=== PATIENT | female | born 1995 | race American Indian/Alaskan Native ===

== ENCOUNTER 2019-01-17 17:48 | Emergency (ER) | payer OTHER ==
[2019-01-17 18:05] VITALS: BP 141/82
--- NOTE | 2019-01-17 18:08 | Emergency Department Report ---
Blank Doc - Documentation Documentation: 23 y o female presents with abd pain, mid non radiating withh diarrhea and con stipation was sent here by PCP to rule out appy due to elevateed wbc labs, IV fluids, CT abdomen ordered ACC eval
[2019-01-17 18:41] LABS: Basophils # (Auto) 0.1 K/mm3 (0.0-0.1); Basophils % (Auto) 0.5 % (0.0-1.8); Eosinophils # (Auto) 0.1 K/mm3 (0.0-0.4); Eosinophils % (Auto) 0.7 % (0.0-4.3); Hematocrit 39.5 % (30.3-42.9); Hemoglobin 13.2 gm/dl (10.1-14.3); Lymphocytes # (Auto) 2.5 K/mm3 (1.2-5.4); Lymphocytes % (Auto) 16.8 % (13.4-35.0); Mean Corpuscular HGB Conc 33 % (30-34); Mean Corpuscular Volume 89 fl (79-97); Monocytes # (Auto) 0.8 K/mm3 (0.0-0.8); Monocytes % (Auto) 5.2 % (0.0-7.3); Platelet Count 376 K/mm3 (140-440); Red Blood Count 4.45 M/mm3 (3.65-5.03); Red Cell Distribution Width 13.4 % (13.2-15.2)
[2019-01-17 19:02] LABS: BUN/Creatinine Ratio 20; Blood Urea Nitrogen 10 mg/dL (7-17); Calcium 9.5 mg/dL (8.4-10.2); Hemolysis Index 1
[2019-01-17] MEDS ORDERED: NACL 0.9% 1000 ML 1,000 ML IV ONE (19:47)
[2019-01-17] MEDS ORDERED: ZOFRAN IV ONE (19:47)
[2019-01-17 20:10] LABS: Bilirubin,Urine NEG (Negative); Blood,Urine NEG (Negative); Calcium Oxalate Crystals,Urine FEW; Color,Urine Yellow (Yellow); Mucus,Urine 2+ /HPF; Urobilinogen,Urine < 2.0 mg/dL (<2.0)
--- NOTE | 2019-01-17 20:30 | Emergency Department Report ---
ED Abdominal Pain HPI - General Chief Complaint: Abdominal Pain Stated Complaint: DR REQUEST/STOMACH PAIN/HIGH WBC Time Seen by Provider: 01/17/19 18:02 Source: patient Mode of arrival: Ambulatory Limitations: No Limitations - History of Present Illness Initial Comments: 23 y o female presents with abd pain, mid non radiating withh diarrhea and constipation was sent here by PCP to rule out appy due to elevateed wbc labs, IV fluids, CT abdomen ordered ACC jessica BEDOYA Complaint: abdominal pain Onset/Timin -: days(s) Location: RLQ Radiation: RLQ Migration to: RLQ Severity: mild Severity scale (0 -10): 2 Quality: sharp Consistency: constant Improves With: nothing Associated Symptoms: nausea. denies: vomiting, diarrhea, fever, chills, constipation, dysuria, hematemesis, hematochezia, melena - Related Data LMP Date: 01/16/19 Previous Rx's Medication Instructions Recorded Last Taken Type Ibuprofen [Motrin 800 MG tab] 800 mg PO Q8HR PRN #30 tablet 01/17/19 Unknown Rx Allergies Allergy/AdvReac Type Severity Reaction Status Date / Time No Known Allergies Allergy Unverified 01/17/19 17:49 ED Review of Systems ROS: Stated complaint: DR REQUEST/STOMACH PAIN/HIGH WBC Other details as noted in HPI Constitutional: denies: chills, fever Eyes: denies: eye pain, eye discharge, vision change ENT: denies: ear pain, throat pain Respiratory: denies: cough, shortness of breath, wheezing Cardiovascular: denies: chest pain, palpitations Endocrine: no symptoms reported Gastrointestinal: abdominal pain, nausea. denies: vomiting, diarrhea, constipation, hematemesis, melena, hematochezia Genitourinary: denies: urgency, dysuria, frequency, hematuria, discharge, abnormal menses, dyspareunia Musculoskeletal: denies: back pain, joint swelling, arthralgia Skin: denies: rash, lesions Neurological: denies: headache, weakness, paresthesias Psychiatric: denies: anxiety, depression Hematological/Lymphatic: denies: easy bleeding, easy bruising ED Past Medical Hx - Past Medical History Previous Medical History?: No - Surgical History Additional Surgical History: tonsils - Social History Smoking Status: Light Tobacco Smoker Substance Use Type: Alcohol, Marijuana - Medications Home Medications: Home Medications Medication Instructions Recorded Confirmed Last Taken Type Ibuprofen [Motrin 800 MG tab] 800 mg PO Q8HR PRN #30 tablet 01/17/19 Unknown Rx ED Physical Exam - General Limitations: No Limitations General appearance: alert, in no apparent distress - Head Head exam: Present: atraumatic, normocephalic - Eye Eye exam: Present: normal appearance, PERRL, EOMI Pupils: Present: normal accommodation - ENT ENT exam: Present: normal exam, mucous membranes moist - Neck Neck exam: Present: normal inspection - Respiratory Respiratory exam: Present: normal lung sounds bilaterally. Absent: respiratory distress, wheezes, stridor - Cardiovascular Cardiovascular Exam: Present: regular rate, normal rhythm, normal heart sounds - GI/Abdominal GI/Abdominal exam: Present: tenderness (RLQ ), normal bowel sounds. Absent: distended, guarding, rebound, rigid, bruit, hernia - Expanded GI/Abdominal Exam Expanded GI/Abdominal exam: Present: tenderness at Mcburney's Point. Absent: psoas sign, obturator sign, heel tap sign, Torres's sign, Rovsing's sign, ascites - Rectal Rectal exam: Present: deferred - Extremities Exam Extremities exam: Present: normal inspection, full ROM, normal capillary refill. Absent: tenderness, pedal edema, joint swelling, calf tenderness - Back Exam Back exam: Present: normal inspection, full ROM. Absent: tenderness, CVA tenderness (R), CVA tenderness (L), muscle spasm, paraspinal tenderness, vertebral tenderness, rash noted - Neurological Exam Neurological exam: Present: alert, oriented X3, CN II-XII intact, normal gait - Psychiatric Psychiatric exam: Present: normal affect, normal mood - Skin Skin exam: Present: warm, dry, intact, normal color. Absent: rash ED Course Vital Signs 01/17/19 18:03 Temperature 98.1 F Pulse Rate 117 H Respiratory 20 Rate Blood Pressure 141/82 [Right] O2 Sat by Pulse 99 Oximetry ED Medical Decision Making - Lab Data Result diagrams: 01/17/19 18:19 01/17/19 18:19 - Radiology Data Radiology results: report reviewed, image reviewed Ordering Physician: SOCORRO COPE Date of Service: 01/17/19 Procedure(s): CT abdomen pelvis wo con Accession Number(s): [id number] cc: SOCORRO COPE PROCEDURE: CT ABDOMEN PELVIS WO CON TECHNIQUE: Computerized axial tomography of the abdomen and pelvis was performed without intravenous contrast. This study is performed without intravascular contrast material and its sensitivity for abdominal and pelvic pathology, including neoplasms, inflammation, abscess, free fluid, thrombosis, arterial dissection and infarction, is reduced compared with a contrast enhanced study. CT DOSE LENGTH PRODUCT: mGycm HISTORY: Abdominal Pain COMPARISONS: None . FINDINGS: Liver, spleen, pancreas and adrenal glands are within normal limits. Bilateral kidneys demonstrate normal density without calculi or hydronephrosis. Aorta is of normal caliber. There is no free fluid or free air. Gallbladder is unremarkable. Small bowel loops are within normal limits. Appendix is normal. Uterus is retroverted. A cystic lesion measuring 3 cm x 2 cm is noted in the left adnexal region most likely representing a dominant follicle versus left ovarian cyst. Vertebral height is normal. IMPRESSION: No acute intra-abdominal or pelvic pathology Retroverted uterus Dominant follicle versus ovarian cyst on the left side measuring 3 cm x 2 cm. This document is electronically signed by Boston Anguiano MD., Jan 17 2019 08:57:14 PM ET Transcribed By: [facility] Dictated By: BOSTON ANGUIANO Electronically Authenticated By: BOSTON ANGUIANO Signed Date/Time: 01/17/192058 DD/ 47 TD/TT: 01/17/192048 - Medical Decision Making CT abd pelvis, Fibroid/ versus Ovarian Cyst right side, there is no fever no n/v no hematuria no frequency no cva tenderness, ua, cmp normal , cbc: wbc 14.5 , ketone: 20 pt is tolerating po intake without n/v pt appears well nontoxic there is not appendicitis, no bowel obstruction, bowel and bladder function are unchanged from baseline per patient. will dc to home with rx for NSAIDs prn pain , follow up TELEGRAPH SERVICE CLERK in 2-3 days given referral to TELEGRAPH SERVICE CLERK pt verbalized agreement and understanding of same. Critical care attestation.: If time is entered above; I have spent that time in minutes in the direct care of this critically ill patient, excluding procedure time. ED Disposition Clinical Impression: Fibroid, uterine Qualifiers: Uterine leiomyoma location: unspecified location Qualified Code(s): D25.9 - Leiomyoma of uterus, unspecified Disposition: DC-01 TO HOME OR SELFCARE Is pt being admited?: No Does the pt Need Aspirin: No Condition: Stable Instructions: Abdominal Pain (ED), Uterine Fibroids (ED) Prescriptions: Ibuprofen [Motrin 800 MG tab] 800 mg PO Q8HR PRN #30 tablet PRN Reason: pain Referrals: [facility] MD AILEEN [Primary Care Provider] - 3-5 Days SHARIFA BROOKS MD [Staff Physician] - 3-5 Days Forms: Work/School Release Form(ED) Time of Disposition: 21:33
--- NOTE | 2019-01-17 20:59 | Cat Scan Report ---
PROCEDURE: CT ABDOMEN PELVIS WO CON TECHNIQUE: Computerized axial tomography of the abdomen and pelvis was performed without intravenous contrast. This study is performed without intravascular contrast material and its sensitivity for ab dominal and pelvic pathology, including neoplasms, inflammation, abscess, free fluid, thrombosis, art erial dissection and infarction, is reduced compared with a contrast enhanced study. CT DOSE LENGTH PRODUCT: mGycm HISTORY: Abdominal Pain COMPARISONS: None . FINDINGS: Liver, spleen, pancreas and adrenal glands are within normal limits. Bilateral kidneys demonstrate no rmal density without calculi or hydronephrosis. Aorta is of normal caliber. There is no free fluid or free air. Gallbladder is unremarkable. Small bowel loops are within normal limits. Appendix is mary l. Uterus is retroverted. A cystic lesion measuring 3 cm x 2 cm is noted in the left adnexal region m ost likely representing a dominant follicle versus left ovarian cyst. Vertebral height is normal. IMPRESSION: No acute intra-abdominal or pelvic pathology Retroverted uterus Dominant follicle versus ovarian cyst on the left side measuring 3 cm x 2 cm. This document is electronically signed by Filippo Anguiano MD., Jan 17 2019 08:57:14 PM ET
== END 2019-01-17 21:41 | disposition home or self-care (01) ==
LOC: ED 17:48
DX: D25.9 Leiomyoma of uterus, unspecified (principal); K59.00 Constipation, unspecified; F17.200 Nicotine dependence, unspecified, uncomplicated; F12.10 Cannabis abuse, uncomplicated
CPT/HCPCS: 36415; 74176; 80048; 81001; 84703; 85025; 96360; 99284; J2405; J7030

== ENCOUNTER 2019-03-21 17:47 | Emergency (ER) | payer OTHER ==
--- NOTE | 2019-03-21 17:52 | Event Note ---
ED Screening Note Date of service: 03/21/19 Time: 17:49 ED Screening Note: This is a 23 y.o. F. that presents to the ER with nausea, chest pain, and SOB started today. Patient reports a cough initially that is intermittent and productive. This initial assessment/diagnostic orders/clinical plan/treatment(s) is/are subject to change based on patients health status, clinical progression and re- assessment by fellow clinical providers in the ED. Further treatment and workup at subsequent clinical providers discretion. Patient/guardian urged not to elope from the ED as their condition may be serious if not clinically assessed and managed. Initial orders include: CXR and EKG
[2019-03-21 17:53] VITALS: BP 143/83
--- NOTE | 2019-03-21 18:50 | Emergency Department Report ---
HPI - General Chief Complaint: Chest Pain Time Seen by Provider: 03/21/19 17:49 ED Past Medical Hx - Past Medical History Previous Medical History?: Yes Additional medical history: ovarian cyst, hypo now hyper active thyroid - Surgical History Past Surgical History?: Yes Additional Surgical History: tonsils - Family History Family history: no significant - Social History Smoking Status: Never Smoker Substance Use Type: None - Medications Home Medications: Home Medications Medication Instructions Recorded Confirmed Last Taken Type Ibuprofen [Motrin 800 MG tab] 800 mg PO Q8HR PRN #30 tablet 01/17/19 Unknown Rx ED Review of Systems ROS: Stated complaint: SOB/NAUSEA/RAPID HEART BEAT Other details as noted in HPI Comment: All other systems reviewed and negative Physical Exam - Physical Exam Vital Signs: Vital Signs 03/21/19 17:48 Temperature 98.7 F Pulse Rate 101 H Respiratory 20 Rate Blood Pressure 143/83 O2 Sat by Pulse 98 Oximetry ED Course Vital Signs 03/21/19 17:48 Temperature 98.7 F Pulse Rate 101 H Respiratory 20 Rate Blood Pressure 143/83 O2 Sat by Pulse 98 Oximetry ED Medical Decision Making - Radiology Data Radiology results: report reviewed, image reviewed - Medical Decision Making known hyperthyroid HR 101 on arrival educated on thyroid dz has appnt 8-13 - Differential Diagnosis ro svt Critical care attestation.: If time is entered above; I have spent that time in minutes in the direct care of this critically ill patient, excluding procedure time. ED Disposition Clinical Impression: Hyperthyroidism, Chest pain Disposition: DC-01 TO HOME OR SELFCARE Is pt being admited?: No Does the pt Need Aspirin: No Condition: Stable Instructions: Hyperthyroidism (ED) Additional Instructions: CALL ENDOCRINE MD IN AM TELL THEM YOU WERE HERE IN ER YOUR HEART RATE WAS SR 90-101 GIVEN YOU HAVE INC IN SYMPTOMS ASK THEM TO SEE YOU SOONER. AVOID STIMULANTS LIKE CAFFEINE OR DRUGS OR ALCOHOL [place] ALSO GIVEN YOU PCP REFERRAL BELOW Referrals: DAMON SANON MD [Staff Physician] - 3-5 Days Time of Disposition: 18:49
--- NOTE | 2019-03-21 18:51 | XRay Report ---
CHEST 1 VIEW 03/21/2019 6:32 PM INDICATION / CLINICAL INFORMATION: Chest Pain. COMPARISON: None available. FINDINGS: SUPPORT DEVICES: None. HEART / MEDIASTINUM: No significant abnormality. LUNGS / PLEURA: No significant pulmonary or pleural abnormality. No pneumothorax. ADDITIONAL FINDINGS: Bilateral nipple piercings IMPRESSION: 1. No acute findings. Signer Name: Milton Dumont MD Signed: 03/21/2019 6:47 PM Workstation Name: [id number]
== END 2019-03-21 18:58 | disposition home or self-care (01) ==
LOC: ED 17:47
DX: E05.90 Thyrotoxicosis, unspecified without thyrotoxic crisis or storm (principal); R07.89 Other chest pain; Z98.890 Other specified postprocedural states; Z79.899 Other long term (current) drug therapy
CPT/HCPCS: 71045; 93005; 93010; 99283

== ENCOUNTER 2019-08-14 15:47 | Emergency (ER) | payer OTHER ==
--- NOTE | 2019-08-14 17:05 | Event Note ---
ED Screening Note Date of service: 08/14/19 Time: 17:04 ED Screening Note: 24 y o f presents with r flank pain This initial assessment/diagnostic orders/clinical plan/treatment(s) is/are subject to change based on patients health status, clinical progression and re- assessment by fellow clinical providers in the ED. Further treatment and workup at subsequent clinical providers discretion. Patient/guardian urged not to elope from the ED as their condition may be serious if not clinically assessed and managed. Initial orders include: labs acc eval
[2019-08-14 17:06] VITALS: BP 126/70
[2019-08-14 18:14] LABS: Bilirubin,Urine NEG (Negative); Blood,Urine SM (Negative); Color,Urine Yellow (Yellow); Mucus,Urine FEW /HPF; Protein,Urine <15 mg/dL mg/dL (Negative); Urobilinogen,Urine < 2.0 mg/dL (<2.0); WBC,Urine < 1.0 /HPF (0.0-6.0)
[2019-08-14 19:09] LABS: Basophils # (Auto) 0.1 K/mm3 (0.0-0.1); Basophils % (Auto) 0.4 % (0.0-1.8); Eosinophils # (Auto) 0.1 K/mm3 (0.0-0.4); Eosinophils % (Auto) 0.8 % (0.0-4.3); Hematocrit 41.2 % (30.3-42.9); Hemoglobin 13.4 gm/dl (10.1-14.3); Lymphocytes # (Auto) 2.4 K/mm3 (1.2-5.4); Lymphocytes % (Auto) 16.9 % (13.4-35.0); Mean Corpuscular HGB Conc 33 % (30-34); Mean Corpuscular Volume 89 fl (79-97); Monocytes % (Auto) 6.7 % (0.0-7.3); Platelet Count 332 K/mm3 (140-440); Red Blood Count 4.63 M/mm3 (3.65-5.03)
[2019-08-14 19:24] LABS: Alanine Aminotransferase 11 units/L (7-56); Albumin 4.5 g/dL (3.9-5); BUN/Creatinine Ratio 20; Blood Urea Nitrogen 10 mg/dL (7-17); Calcium 9.3 mg/dL (8.4-10.2); Hemolysis Index 47
--- NOTE | 2019-08-14 21:23 | Emergency Department Report ---
ED Abdominal Pain HPI - General Chief Complaint: Abdominal Pain Stated Complaint: RT SIDE PAIN Time Seen by Provider: 08/14/19 21:14 Source: patient Mode of arrival: Ambulatory Limitations: No Limitations - History of Present Illness Initial Comments: 24-year-old -[place] female presents to the emergency room complaining of right lower quadrant abdominal pain and nausea started today. Patient states pain is worse cough standing pressing down on her belly. Patient reports that the pain was sharp earlier today and worse with bowel movements and it radiates to her lower abdomen. She denies any fever or chills. Patient states that she was constipated the night before. Patient denies any vaginal discharge but admits to spotting secondary to her control medication. Patient denies any nausea no vomiting. Patient's last menstrual period was 05/30/2019. Patient is 0. MD Complaint: abdominal pain -: This morning Location: RLQ Radiation: suprapubic Severity scale (0 -10): 7 Quality: fullness, sharp Consistency: constant Improves With: nothing Worsens With: bowel movement, movement Associated Symptoms: denies other symptoms - Related Data LMP Date: 05/30/19 Previous Rx's Medication Instructions Recorded Last Taken Type Ibuprofen [Motrin 800 MG tab] 800 mg PO Q8HR PRN #30 tablet 08/14/19 Unknown Rx Allergies Allergy/AdvReac Type Severity Reaction Status Date / Time No Known Allergies Allergy Verified 08/14/19 17:06 ED Review of Systems ROS: Stated complaint: RT SIDE PAIN Other details as noted in HPI Comment: All other systems reviewed and negative ED Past Medical Hx - Past Medical History Previous Medical History?: Yes Additional medical history: Ovarian cyst. endometriosis. on an anti arrythmic - Surgical History Past Surgical History?: Yes Additional Surgical History: T and A - Social History Smoking Status: Current Some Day Smoker Substance Use Type: Marijuana - Medications Home Medications: Home Medications Medication Instructions Recorded Confirmed Last Taken Type Ibuprofen [Motrin 800 MG tab] 800 mg PO Q8HR PRN #30 tablet 08/14/19 Unknown Rx ED Physical Exam - General Limitations: No Limitations General appearance: alert, in no apparent distress - Head Head exam: Present: atraumatic, normocephalic - Eye Eye exam: Present: normal appearance - ENT ENT exam: Present: mucous membranes moist - Respiratory Respiratory exam: Present: normal lung sounds bilaterally. Absent: respiratory distress - Cardiovascular Cardiovascular Exam: Present: tachycardia - GI/Abdominal GI/Abdominal exam: Present: soft, tenderness, guarding. Absent: distended - Extremities Exam Extremities exam: Present: normal inspection, full ROM - Back Exam Back exam: Present: normal inspection - Neurological Exam Neurological exam: Present: alert, oriented X3, normal gait - Psychiatric Psychiatric exam: Present: normal affect, normal mood - Skin Skin exam: Present: warm, dry, intact, normal color. Absent: rash ED Course Vital Signs 08/14/19 17:04 Temperature 98.7 F Pulse Rate 99 H Respiratory 20 Rate Blood Pressure 126/70 [Right] O2 Sat by Pulse 99 Oximetry ED Medical Decision Making - Lab Data Result diagrams: 08/14/19 18:38 08/14/19 18:38 - Radiology Data Radiology results: report reviewed Patient: ANURAG DE ANDA MR#: [id number] : 1995 Acct:[id number] Age/Sex: 24 / F ADM Date: 08/14/19 Loc: ED Attending Dr: Ordering Physician: SOCORRO LA Date of Service: 08/14/19 Procedure(s): CT abdomen pelvis w con Accession Number(s): [id number] cc: SOCORRO LA CT of the abdomen and pelvis with contrast INDICATION: Abdominal pain COMPARISON: 01/17/2019 FINDINGS: Lung bases are clear. The liver, spleen, pancreas, adrenal glands and kidneys show no abnormalities. No definite gallbladder or biliary tree abnormality. No fluid or adenopathy in the upper abdomen. CT of the pelvis shows a normal appendix. No diverticulosis or diverticulitis. There are small follicular cysts in each ovary with minimal pelvic fluid. No hernia or bowel obstruction. No significant skeletal lesion. IMPRESSION: Small ovarian cysts with free fluid. No appendicitis or inflammatory process. Automated exposure control was utilized to diminish radiation dose. Signer Name: Ronaldo Tineo MD Signed: 08/14/2019 10:56 PM Workstation Name: [id number] Transcribed By: ELEANOR Dictated By: Ronaldo Tineo MD Electronically Authenticated By: Ronadlo Tineo MD Signed Date/Time: 08/14/192255 DD/ 50 TD/TT: - Medical Decision Making 24-year-old -[place] female presents to the emergency room complaining of right lower quadrant abdominal pain and nausea started today. Patient states pain is worse cough standing pressing down on her belly. Patient reports that the pain was sharp earlier today and worse with bowel movements and it radiates to her lower abdomen. She denies any fever or chills. Patient states that she was constipated the night before. Patient denies any vaginal discharge but admits to spotting secondary to her control medication. Patient denies any nausea no vomiting. Patient's last menstrual period was 05/30/2019. Patient is 0. IV with normal saline CT with contrast of abdomen and pelvis. Critical care attestation.: If time is entered above; I have spent that time in minutes in the direct care of this critically ill patient, excluding procedure time. ED Disposition Clinical Impression: Ovarian cyst Disposition: TO HOME OR SELFCARE Is pt being admited?: No Does the pt Need Aspirin: No Condition: Stable Instructions: Abdominal Pain (ED) Additional Instructions: CTs negative for any acute abnormalities. It shows that there is small ovarian cysts. Ibuprofen is a drug of choice to work with the pain from ovarian cysts. Please follow up with her primary care provider or STORE ASSISTANT provider. Prescriptions: Ibuprofen [Motrin 800 MG tab] 800 mg PO Q8HR PRN #30 tablet PRN Reason: pain Referrals: PRIMARY CAREMD [Primary Care Provider] - 3-5 Days [facility] [Provider Group] - 3-5 Days [facility] EQUIPMENT OPER[facility] [Provider Group] - 3-5 Days Forms: Work/School Release Form(ED)
[2019-08-14] MEDS ORDERED: MORPHINE 4 MG/1 ML INJ IV ONE (21:26)
[2019-08-14] MEDS ORDERED: SODIUM CHLORIDE 0.9% 1000 ML 1,000 ML IV ONE (21:26)
[2019-08-14] MEDS ORDERED: ONDANSETRON 4 MG/2 ML INJ IV ONE (21:26)
--- NOTE | 2019-08-14 23:01 | Cat Scan Report ---
CT of the abdomen and pelvis with contrast INDICATION: Abdominal pain COMPARISON: 01/17/2019 FINDINGS: Lung bases are clear. The liver, spleen, pancreas, adrenal glands and kidneys show no abnor malities. No definite gallbladder or biliary tree abnormality. No fluid or adenopathy in the upper ab domen. CT of the pelvis shows a normal appendix. No diverticulosis or diverticulitis. There are small follic ular cysts in each ovary with minimal pelvic fluid. No hernia or bowel obstruction. No significant sk eletal lesion. IMPRESSION: Small ovarian cysts with free fluid. No appendicitis or inflammatory process. Automated exposure control was utilized to diminish radiation dose. Signer Name: Ronaldo Tineo MD Signed: 08/14/2019 10:56 PM Workstation Name: [id number]
== END 2019-08-15 00:15 | disposition home or self-care (01) ==
LOC: ED 15:47
DX: N83.201 Unspecified ovarian cyst, right side (principal); F17.200 Nicotine dependence, unspecified, uncomplicated; F12.10 Cannabis abuse, uncomplicated; Z79.899 Other long term (current) drug therapy
CPT/HCPCS: 36415; 74177; 80053; 81001; 84703; 85025; 96374; 96375; 99284; J2270; J2405; J7030; Q9967